=== PATIENT | male | born 1990 | race Caucasian/White ===

== ENCOUNTER 2017-01-11 09:56 | Emergency (ER) | payer OTHER ==
[~2017-01-11] VITALS: Ht 175.3 cm; Wt 69.0 kg
[2017-01-11] MEDS ORDERED: IBUPROFEN 600MG TABLET PO ONE (11:00)
[2017-01-11 11:09] VITALS: BP 120/63
[2017-01-11] MEDS ORDERED: BACITRACIN ZINC OINT UDPKT TOP ONE (11:15)
== END 2017-01-11 12:39 | disposition home or self-care (01) ==
LOC: ER 10:25
DX: S63.502A Unspecified sprain of left wrist, initial encounter (principal); L72.3 Sebaceous cyst; W18.39XA Other fall on same level, initial encounter; Y93.51 Activity, roller skating (inline) and skateboarding; Y92.9 Unspecified place or not applicable; Y99.9 Unspecified external cause status
CPT/HCPCS: 73110; 99284